=== PATIENT | male | born 1960 | race Caucasian/White ===

== ENCOUNTER 2018-09-19 12:52 | Emergency (ER) | payer MEDICAID ==
[~2018-09-19] VITALS: Ht 180.3 cm; Wt 115.9 kg
[2018-09-19] MEDS ORDERED: morphine 2 MG INJ IV STA (12:55)
[2018-09-19] MEDS ORDERED: SOD CHLORIDE 0.9% 1,000 ML IV STA (12:55)
[2018-09-19 13:00] VITALS: Ht 180.3 cm; Wt 115.9 kg
[2018-09-19] MEDS ORDERED: DIPHTH/TET/ACEL PERTUSS (ADULT) 0.5 ML VIAL IM* ONE (13:00)
[2018-09-19] MEDS ORDERED: ONDANSETRON 4 MG INJ IV ONE (13:00)
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
[2018-09-19] MEDS ORDERED: SOD CHLORIDE 0.9% 100 ML ONE (14:18)
[2018-09-19] MEDS ORDERED: IOHEXOL 300MG/ML 150 ML BTL ONE (14:18)
[2018-09-19] MEDS ORDERED: LIDOCAINE 1%/EPI 30 ML INJ INJ STA (15:32)
[2018-09-19] MEDS ORDERED: ONDA4TAB14 PO (15:46)
[2018-09-19] MEDS ORDERED: IBUP800T48 PO (15:46)
[2018-09-19] MEDS ORDERED: HYDR-3980 PO (15:46)
[2018-09-19] MEDS ORDERED: HYDROCODONE/APAP (10/325) TAB PO ONE (16:00)
[2018-09-19] MEDS ORDERED: LIDOCAINE 1%/EPI (1:100,000) (MDV) 20 ML INJ SCH (16:00)
[2018-09-19 17:00] VITALS: BP 131/79; PULSE 110; RESP 24
== END 2018-09-19 17:37 | disposition home or self-care (01) ==
LOC: E/R 12:52
DX: S80.12XA Contusion of left lower leg, initial encounter (principal); M54.2 Cervicalgia; V43.92XA Unspecified car occupant injured in collision with other type car in traffic accident, initial encounter; Z23 Encounter for immunization
CPT/HCPCS: 12004; 70450; 71260; 72125; 73550; 74177; 80048; 85025; 85610; 85730; 90471; 90715; 93005; 96374; 96375; J2270; J2405; J7030; Q9967; Z7502; Z7610

== ENCOUNTER 2018-09-23 12:57 | Emergency (ER) | payer MEDICAID ==
[~2018-09-23] VITALS: Ht 172.7 cm; Wt 121.3 kg
[~2018-09-23 12:57] MED LIST: HYDR-3980 PO; IBUP800T48 PO; ONDA4TAB14 PO
[2018-09-23 13:19] VITALS: Ht 172.7 cm; Wt 121.3 kg
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
[2018-09-23] MEDS ORDERED: OXYCODONE/ACETAMINOPHEN (5/325) TAB PO ONE (15:30)
[2018-09-23 16:47] VITALS: BP 132/76; PULSE 84; RESP 16
== END 2018-09-23 16:55 | disposition home or self-care (01) ==
LOC: E/R 12:57
DX: S20.219D Contusion of unspecified front wall of thorax, subsequent encounter (principal); R07.9 Chest pain, unspecified; V89.2XXD Person injured in unspecified motor-vehicle accident, traffic, subsequent encounter; Z87.891 Personal history of nicotine dependence
CPT/HCPCS: 36415; 71045; 80053; 84484; 85025; 93005; Z7502; Z7610

== ENCOUNTER 2018-10-20 13:44 | Emergency (ER) | payer MEDICAID ==
[~2018-10-20] VITALS: Ht 180.3 cm; Wt 121.8 kg
[2018-10-20 13:46] VITALS: PULSE 111; RESP 19; Ht 180.3 cm; Wt 121.8 kg
[2018-10-20] MEDS ORDERED: ONDANSETRON (ODT) 4 MG TAB ODT STA (15:26)
[2018-10-20] MEDS ORDERED: HYDROCODONE/APAP (5/325) TAB PO ONE (15:30)
[2018-10-20] MEDS ORDERED: IBUP-1542 PO (17:26)
[2018-10-20] MEDS ORDERED: HYDR-4011 PO (17:26)
[2018-10-20] MEDS ORDERED: DOXY100T20 PO (17:26)
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
[2018-10-20 17:40] VITALS: BP 165/95
== END 2018-10-20 17:43 | disposition home or self-care (01) ==
LOC: FTE 13:44
DX: J18.1 Lobar pneumonia, unspecified organism (principal); S09.90XA Unspecified injury of head, initial encounter; R11.10 Vomiting, unspecified; F17.210 Nicotine dependence, cigarettes, uncomplicated; V49.50XA Passenger injured in collision with unspecified motor vehicles in traffic accident, initial encounter
CPT/HCPCS: 70450; 71045; Z7502; Z7610